=== PATIENT | male | born 1955 | race American Indian/Alaskan Native ===

== ENCOUNTER 2020-11-21 18:58 | Emergency (ER) | payer MEDICARE ==
[2020-11-21 20:11] VITALS: BP 159/89
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
== END 2020-11-21 20:45 | disposition home or self-care (01) ==
LOC: ED 18:58
DX: E11.22 Type 2 diabetes mellitus with diabetic chronic kidney disease (principal); Z76.0 Encounter for issue of repeat prescription; I13.0 Hypertensive heart and chronic kidney disease with heart failure and stage 1 through stage 4 chronic kidney disease, or unspecified chronic kidney disease; N18.9 Chronic kidney disease, unspecified; I50.9 Heart failure, unspecified
CPT/HCPCS: 99282

== ENCOUNTER 2020-11-22 09:08 | Emergency (ER) | payer MEDICARE ==
[2020-11-22 10:46] VITALS: BP 128/68
--- NOTE | 2020-11-22 10:46 | Event Note ---
ED Screening Note ED Screening Note: states he is a dialysis pt last dialysis treatment was on 11/19/20 reports he goes to [facility] dialysis clinic he also forgot his insulin at home, it was refilled last night but he states his insurance would not pay for it as he just got it last night This initial assessment/diagnostic orders/clinical plan/treatment(s) is/are subject to change based on patients health status, clinical progression and re- assessment by fellow clinical providers in the ED. Further treatment and workup at subsequent clinical providers discretion. Patient/guardian urged not to elope from the ED as their condition may be serious if not clinically assessed and managed. Initial orders include: labs
[2020-11-22 10:58] LABS: Basophils % (Auto) 0.1 % (0.0-1.8); Hematocrit 31.6 % (35.5-45.6); Hemoglobin 10.4 gm/dl (11.8-15.2); Lymphocytes # (Auto) 0.6 K/mm3 (1.2-5.4); Mean Corpuscular HGB Conc 33 % (32-34); Mean Corpuscular Volume 95 fl (84-94); Monocytes # (Auto) 0.3 K/mm3 (0.0-0.8); Monocytes % (Auto) 5.2 % (0.0-7.3); Platelet Count 202 K/mm3 (140-440); Red Blood Count 3.34 M/mm3 (3.65-5.03); Red Cell Distribution Width 16.3 % (13.2-15.2)
[2020-11-22 11:21] LABS: Calcium 9.1 mg/dL (8.4-10.2)
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
== END 2020-11-22 13:41 | disposition home or self-care (01) ==
LOC: ED 09:08
DX: E11.22 Type 2 diabetes mellitus with diabetic chronic kidney disease (principal); I13.2 Hypertensive heart and chronic kidney disease with heart failure and with stage 5 chronic kidney disease, or end stage renal disease; I50.9 Heart failure, unspecified; N18.6 End stage renal disease; Z86.79 Personal history of other diseases of the circulatory system; Z79.4 Long term (current) use of insulin
CPT/HCPCS: 36415; 80053; 85025; 99283